=== PATIENT | female | born 1930 | race Caucasian/White ===

== ENCOUNTER 2016-03-18 10:02 | Outpatient (CLI) | payer MEDICARE ==
[2016-03-18 10:25] LABS: #Basophils 0.1 thou/uL (0.0-0.2); #Eosinphils 0.1 thou/uL (0.0-0.7); #Lymphocytes 1.4 thou/uL (1.20-3.40); #Monocytes 0.5 thou/uL (0.11-0.59); #Neutrophils 4.5 thou/uL (1.40-6.50); %Basophils 0.8 % (0.0-1.0); %Eosinophils 1.3 % (0.0-10.0); %Lymphocytes 21.1 % (21.0-51.0); %Monocytes 7.6 % (0.0-10.0); Hematocrit 44.3 % (36.0-47.0); Mean Platelet Volume 7.1 fL (7.4-10.4); Red Blood Cell (RBC) Count 4.84 mill/uL (4.20-5.40); White Blood Cell (WBC) Count 6.6 thou/uL (4.8-10.8)
[2016-03-18 10:43] LABS: ALT (SGPT) 18 U/L (0-55); AST (SGOT) 19 U/L (5-34); Alkaline Phosphatase 53 U/L (40-150); Anion Gap 13 mmol/L (10-20); BUN (Urea Nitrogen) 20 mg/dL (9.8-20.1); Bilirubin, Direct 0.5 mg/dL (0.1-0.3); Bilirubin, Total 1.1 mg/dL (0.2-1.2); Calc. Creatinine Clearance 0 mL/min (70-130); Calcium 8.5 mg/dL (7.8-10.44); Carbon Dioxide 27 mmol/L (23-31); Chloride 107 mmol/L (98-107); Estimated GFR-MDRD 63; LDL Cholesterol, Calculated 41 mg/dL
[2016-03-18 11:35] LABS: Prothrombin Time 27.4 SEC (12.0-14.7)
[2016-03-18 11:39] LABS: Hemoglobin A1c 5.2 % (4.0-6.0)
== END 2016-03-18 10:03 | disposition home or self-care (01) ==
LOC: NAV LABSP 10:02
PROVIDERS: ATTEND Family Medicine
DX: E78.00 Pure hypercholesterolemia, unspecified (principal); I48.91 Unspecified atrial fibrillation; I50.9 Heart failure, unspecified; I10 Essential (primary) hypertension; F44.9 Dissociative and conversion disorder, unspecified; I50.21 Acute systolic (congestive) heart failure; R06.02 Shortness of breath; Z79.899 Other long term (current) drug therapy
CPT/HCPCS: 80048; 80061; 80076; 83036; 83880; 84443; 85025; 85610

== ENCOUNTER 2016-06-15 14:58 | Outpatient (CLI) | payer MEDICARE ==
[2016-06-15 22:17] LABS: INR-International Normal Ratio 2.6; Prothrombin Time 29.2 SEC (12.0-14.7)
== END 2016-06-15 14:59 | disposition home or self-care (01) ==
LOC: NAV LABSP 14:58
PROVIDERS: ATTEND Family Medicine
DX: Z51.81 Encounter for therapeutic drug level monitoring (principal); Z79.01 Long term (current) use of anticoagulants
CPT/HCPCS: 85610